=== PATIENT | male | born 1990 | race Caucasian/White ===

== ENCOUNTER 2017-09-27 03:53 | Emergency (ER) | payer SELFPAY ==
[2017-09-27] MEDS ORDERED: Diphtheria,Pertussis(Acell),Tetanus Vaccine 0.5 ML Syringe IM ONE (04:08)
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
[2017-09-27] MEDS ORDERED: Lidocaine 1% 20 ML MDV INJECT ONE (04:16)
[2017-09-27] MEDS ORDERED: Cephalexin 500 MG Cap PO ONE (05:02)
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
== END 2017-09-27 05:25 | disposition home or self-care (01) ==
LOC: MW.ED 03:53
DX: S02.2XXA Fracture of nasal bones, initial encounter for closed fracture (principal); S01.21XA Laceration without foreign body of nose, initial encounter; Y04.2XXA Assault by strike against or bumped into by another person, initial encounter; Z53.21 Procedure and treatment not carried out due to patient leaving prior to being seen by health care provider
CPT/HCPCS: 12011; 70450; 70486; 90471; 90715; 99283; A9270